=== PATIENT | female | born 1950 | race Two or more races ===

== ENCOUNTER 2019-01-04 14:34 | Emergency (ER) | payer OTHER ==
[~2019-01-04] VITALS: Ht 144.8 cm; Wt 38.6 kg
[2019-01-04 14:44] VITALS: Ht 144.8 cm; Wt 38.6 kg
[2019-01-04 18:05] VITALS: BP 175/99
== END 2019-01-04 18:05 | disposition home or self-care (01) ==
LOC: CANPREER → ED 14:34
DX: S93.401A Sprain of unspecified ligament of right ankle, initial encounter (principal); I12.0 Hypertensive chronic kidney disease with stage 5 chronic kidney disease or end stage renal disease; N18.6 End stage renal disease; Z99.2 Dependence on renal dialysis; I63.9 Cerebral infarction, unspecified; E78.00 Pure hypercholesterolemia, unspecified; I73.9 Peripheral vascular disease, unspecified; L97.929 Non-pressure chronic ulcer of unspecified part of left lower leg with unspecified severity; Z88.6 Allergy status to analgesic agent; Z88.5 Allergy status to narcotic agent; L97.919 Non-pressure chronic ulcer of unspecified part of right lower leg with unspecified severity; X58.XXXA Exposure to other specified factors, initial encounter; Y93.89 Activity, other specified; Y92.89 Other specified places as the place of occurrence of the external cause; Y99.8 Other external cause status
CPT/HCPCS: Q0092

== ENCOUNTER 2019-02-07 03:40 | Emergency (ER) | payer OTHER ==
[~2019-02-07] VITALS: Ht 144.8 cm; Wt 37.2 kg
[2019-02-07 03:48] VITALS: Ht 144.8 cm; Wt 37.2 kg
[2019-02-07 06:58] VITALS: BP 157/76
== END 2019-02-07 06:58 | disposition home or self-care (01) ==
LOC: ED 03:40
DX: S76.911A Strain of unspecified muscles, fascia and tendons at thigh level, right thigh, initial encounter (principal); J44.9 Chronic obstructive pulmonary disease, unspecified; I12.9 Hypertensive chronic kidney disease with stage 1 through stage 4 chronic kidney disease, or unspecified chronic kidney disease; N18.9 Chronic kidney disease, unspecified; E78.00 Pure hypercholesterolemia, unspecified; Z94.0 Kidney transplant status; Z88.6 Allergy status to analgesic agent; Z88.8 Allergy status to other drugs, medicaments and biological substances; X58.XXXA Exposure to other specified factors, initial encounter; Y93.89 Activity, other specified; Y92.89 Other specified places as the place of occurrence of the external cause; Y99.8 Other external cause status
CPT/HCPCS: J3010

== ENCOUNTER 2019-02-26 23:28 | Inpatient (IN) | payer OTHER ==
[~2019-02-26] VITALS: Ht 152.4 cm; Wt 37.6 kg
[2019-02-27] VITALS (7 sets, daily range): BP systolic 118–180; BP diastolic 43–64
[2019-02-27 00:28] LABS: BASOPHIL % 0.3 % (0-2); PLATELET COUNT 375 x10^3mcL (130-400)
[2019-02-27 00:29] LABS: RED CELL DISTRIBUTION WIDTH 18.8 % (11.5-14.5)
[2019-02-27 00:32] LABS: BILIRUBIN TOTAL 0.4 mg/dL (0.20-1.00); CALCIUM 9.9 mg/dL (8.5-10.1); CARBON DIOXIDE 28.9 mmol/L (21-32); POTASSIUM SERUM 4.1 mmol/L (3.5-5.1)
[2019-02-27 00:36] LABS: ALBUMIN 2.5 g/dL (3.4-5.0)
[2019-02-27 00:38] LABS: CREATININE SERUM 5.5 mg/dL (0.6-1.0)
[2019-02-27] MEDS ORDERED: CARVEDILOL25 M1 PO (01:25)
[2019-02-27] MEDS ORDERED: CLONIDINE HYDR0.3 M1 PO (01:26)
[2019-02-27] MEDS ORDERED: TRAMADOL HCL50 MG PO (01:26)
[2019-02-27] MEDS ORDERED: HYDRALAZINE HCL50 MG PO (01:27)
[2019-02-27] MEDS ORDERED: PROAIR HFA8.5 GM IH (01:27)
[2019-02-27] MEDS ORDERED: NORCO1 TA2 PO (01:28)
[2019-02-27 01:46] LABS: MAGNESIUM 2.5 mg/dL (1.8-2.4); PHOSPHOROUS 7.3 mg/dL (2.5-4.9)
[2019-02-27 06:45] LABS: PLATELET COUNT 352 x10^3mcL (130-400)
[2019-02-27 06:48] LABS: CALCIUM 10.3 mg/dL (8.5-10.1); CARBON DIOXIDE 27.5 mmol/L (21-32); POTASSIUM SERUM 3.9 mmol/L (3.5-5.1)
[2019-02-27 06:52] LABS: CREATININE SERUM 5.6 mg/dL (0.6-1.0)
[2019-02-27 06:53] LABS: RED CELL DISTRIBUTION WIDTH 18.9 % (11.5-14.5)
[2019-02-27 10:27] LABS: BAND NEUTROPHIL 0 % (0-10); BASOPHIL 0 % (0-2); MONOCYTE 13 % (0-7); SEGMENTED NEUTROPHILS 83 % (37-75)
[2019-02-27 10:29] LABS: PLATELET MORPHOLOGY PLATELETS INCREASED; rbc morphology (normal/abnorm) ABNORMAL (NORMAL)
[2019-02-28 04:56] VITALS: BP 163/52
[2019-02-28 06:31] LABS: CALCIUM 9.9 mg/dL (8.5-10.1); CARBON DIOXIDE 25.7 mmol/L (21-32); CREATININE SERUM 3.1 mg/dL (0.6-1.0)
[2019-02-28 06:34] LABS: BASOPHIL % 0.2 % (0-2); PLATELET COUNT 334 x10^3mcL (130-400)
[2019-02-28 06:45] LABS: RED CELL DISTRIBUTION WIDTH 18.5 % (11.5-14.5)
[2019-02-28 10:02] VITALS: BP 178/61
[2019-02-28 12:55] VITALS: BP 191/46
[2019-02-28 16:47] VITALS: BP 121/73
[2019-02-28 21:08] VITALS: BP 181/65
[2019-03-01 05:19] VITALS: BP 127/67
[2019-03-01 06:15] LABS: CALCIUM 10.6 mg/dL (8.5-10.1); CARBON DIOXIDE 23.2 mmol/L (21-32); MAGNESIUM 2.1 mg/dL (1.8-2.4); PHOSPHOROUS 6.5 mg/dL (2.5-4.9); POTASSIUM SERUM 5.4 mmol/L (3.5-5.1)
[2019-03-01 06:31] LABS: CREATININE SERUM 4.7 mg/dL (0.6-1.0)
[2019-03-01 06:36] LABS: BASOPHIL % 0.4 % (0-2); PLATELET COUNT 324 x10^3mcL (130-400)
[2019-03-01 06:52] LABS: RED CELL DISTRIBUTION WIDTH 19.1 % (11.5-14.5)
[2019-03-01 08:26] VITALS: BP 212/70
[2019-03-01 17:00] VITALS: BP 178/70
[2019-03-01 21:01] VITALS: BP 172/67
[2019-03-01 22:48] VITALS: BP 179/69
[2019-03-02 04:20] VITALS: BP 186/72
[2019-03-02 06:15] VITALS: BP 186/70
[2019-03-02 06:19] LABS: CALCIUM 10.8 mg/dL (8.5-10.1); CARBON DIOXIDE 24.4 mmol/L (21-32); CREATININE SERUM 3.6 mg/dL (0.6-1.0); POTASSIUM SERUM 4.3 mmol/L (3.5-5.1)
[2019-03-02 06:27] LABS: BASOPHIL % 0.2 % (0-2); PLATELET COUNT 294 x10^3mcL (130-400)
[2019-03-02 09:12] VITALS: BP 119/47
[2019-03-02 17:55] VITALS: BP 146/72
[2019-03-02 19:54] VITALS: BP 117/58
[2019-03-03 06:00] VITALS: BP 192/57
[2019-03-03 06:40] VITALS: BP 186/53
[2019-03-03 08:05] LABS: BASOPHIL % 0.5 % (0-2); PLATELET COUNT 296 x10^3mcL (130-400)
[2019-03-03 08:11] LABS: RED CELL DISTRIBUTION WIDTH 18.6 % (11.5-14.5)
[2019-03-03 08:48] LABS: CALCIUM 10.8 mg/dL (8.5-10.1); CARBON DIOXIDE 22.9 mmol/L (21-32); POTASSIUM SERUM 5.5 mmol/L (3.5-5.1)
[2019-03-03 08:54] VITALS: BP 176/59
[2019-03-03 16:28] VITALS: BP 114/47
[2019-03-04] VITALS (8 sets, daily range): BP systolic 109–178; BP diastolic 46–64
[2019-03-04 06:38] LABS: BASOPHIL % 0.3 % (0-2); PLATELET COUNT 282 x10^3mcL (130-400)
[2019-03-04 06:54] LABS: CALCIUM 10.6 mg/dL (8.5-10.1); CARBON DIOXIDE 20.4 mmol/L (21-32); CREATININE SERUM 3.5 mg/dL (0.6-1.0); POTASSIUM SERUM 4.2 mmol/L (3.5-5.1)
[2019-03-04 07:37] LABS: RED CELL DISTRIBUTION WIDTH 18.7 % (11.5-14.5)
[2019-03-04] MEDS ORDERED: FLA500 PO (10:24)
[2019-03-04] MEDS ORDERED: BACTRIM DS1 TAB PO (10:24)
[2019-03-04] MEDS ORDERED: CLINDAMYCIN HY150 M1 PO (17:49)
[2019-03-04] MEDS ORDERED: CIPRO500 MG PO (17:49)
[2019-03-05 06:03] VITALS: BP 128/56
[2019-03-05 07:21] LABS: CALCIUM 10.7 mg/dL (8.5-10.1); CARBON DIOXIDE 16.7 mmol/L (21-32); MAGNESIUM 2.5 mg/dL (1.8-2.4); PHOSPHOROUS 7.1 mg/dL (2.5-4.9); POTASSIUM SERUM 4.9 mmol/L (3.5-5.1)
[2019-03-05 07:34] LABS: CREATININE SERUM 4.9 mg/dL (0.6-1.0)
[2019-03-05 07:42] LABS: BASOPHIL % 0.1 % (0-2); PLATELET COUNT 329 x10^3mcL (130-400)
[2019-03-05 07:56] LABS: RED CELL DISTRIBUTION WIDTH 18.6 % (11.5-14.5)
[2019-03-05 09:10] VITALS: BP 145/58
[2019-03-05 16:23] VITALS: BP 128/55
[2019-03-05 20:50] VITALS: BP 131/48
[2019-03-06] VITALS (7 sets, daily range): BP systolic 118–200; BP diastolic 52–75; Ht 152.4 cm; Wt 37.6 kg
[2019-03-06 06:47] LABS: BASOPHIL % 0.2 % (0-2); PLATELET COUNT 336 x10^3mcL (130-400)
[2019-03-06 06:58] LABS: CALCIUM 10.7 mg/dL (8.5-10.1); CARBON DIOXIDE 17.7 mmol/L (21-32); POTASSIUM SERUM 5.5 mmol/L (3.5-5.1)
[2019-03-06 07:02] LABS: RED CELL DISTRIBUTION WIDTH 18.9 % (11.5-14.5)
[2019-03-06 07:11] LABS: CREATININE SERUM 6.1 mg/dL (0.6-1.0)
[2019-03-07] VITALS (7 sets, daily range): BP systolic 102–184; BP diastolic 48–65
[2019-03-08 05:49] VITALS: BP 159/57
[2019-03-08 06:44] LABS: PLATELET COUNT 291 x10^3mcL (130-400)
[2019-03-08 06:50] LABS: CALCIUM 9.9 mg/dL (8.5-10.1); CARBON DIOXIDE 24.4 mmol/L (21-32); POTASSIUM SERUM 5.1 mmol/L (3.5-5.1)
[2019-03-08 06:53] LABS: RED CELL DISTRIBUTION WIDTH 18.9 % (11.5-14.5)
[2019-03-08 07:06] LABS: CREATININE SERUM 5.1 mg/dL (0.6-1.0)
[2019-03-08 09:09] LABS: calcium (part of PTHIC) 10.1 mg/dL (8.7-10.3)
[2019-03-08 09:11] VITALS: BP 165/65
[2019-03-08 10:45] LABS: BAND NEUTROPHIL 1 % (0-10); BASOPHIL 0 % (0-2); MONOCYTE 1 % (0-7); SEGMENTED NEUTROPHILS 92 % (37-75)
[2019-03-08 10:46] LABS: rbc morphology (normal/abnorm) ABNORMAL (NORMAL)
[2019-03-08 10:47] LABS: PLATELET MORPHOLOGY PLATELETS NORMAL
[2019-03-08 18:37] VITALS: BP 194/78
[2019-03-08 20:38] VITALS: BP 187/70
[2019-03-08 23:07] VITALS: BP 127/52
[2019-03-09 06:20] LABS: PLATELET COUNT 320 x10^3mcL (130-400)
[2019-03-09 06:27] VITALS: BP 157/56
[2019-03-09 06:39] LABS: CALCIUM 9.6 mg/dL (8.5-10.1); CARBON DIOXIDE 28.6 mmol/L (21-32); CREATININE SERUM 2.9 mg/dL (0.6-1.0); MAGNESIUM 1.9 mg/dL (1.8-2.4)
[2019-03-09 06:42] LABS: BASOPHIL % 0 % (0-2); RED CELL DISTRIBUTION WIDTH 18.8 % (11.5-14.5)
[2019-03-09 09:21] VITALS: BP 150/60
[2019-03-09 17:49] VITALS: BP 152/59
[2019-03-09 20:22] VITALS: BP 151/69
[2019-03-10] VITALS (8 sets, daily range): BP systolic 136–201; BP diastolic 53–76
[2019-03-10 06:39] LABS: CALCIUM 10.3 mg/dL (8.5-10.1); CARBON DIOXIDE 23.7 mmol/L (21-32); POTASSIUM SERUM 4.3 mmol/L (3.5-5.1)
[2019-03-10 06:51] LABS: CREATININE SERUM 4.3 mg/dL (0.6-1.0)
[2019-03-10 07:33] LABS: BASOPHIL % 0.1 % (0-2); PLATELET COUNT 330 x10^3mcL (130-400)
[2019-03-10 08:03] LABS: RED CELL DISTRIBUTION WIDTH 19.5 % (11.5-14.5)
[2019-03-10 14:18] LABS: rbc morphology (normal/abnorm) ABNORMAL (NORMAL)
[2019-03-10 23:32] LABS: BASOPHIL % 0.1 % (0-2); PLATELET COUNT 354 x10^3mcL (130-400); RED CELL DISTRIBUTION WIDTH 18.1 % (11.5-14.5)
[2019-03-11 00:20] VITALS: BP 190/70
[2019-03-11 06:00] VITALS: BP 180/68
[2019-03-11 07:12] VITALS: BP 185/55
[2019-03-11 08:37] LABS: BASOPHIL % 0.1 % (0-2); PLATELET COUNT 354 x10^3mcL (130-400)
[2019-03-11 09:26] LABS: CALCIUM 11.2 mg/dL (8.5-10.1); CARBON DIOXIDE 19.5 mmol/L (21-32); MAGNESIUM 2.1 mg/dL (1.8-2.4); POTASSIUM SERUM 4.3 mmol/L (3.5-5.1)
[2019-03-11 17:35] VITALS: BP 174/74
[2019-03-11 20:34] VITALS: BP 139/66
[2019-03-12 05:38] VITALS: BP 224/87
[2019-03-12 06:51] VITALS: BP 151/58
[2019-03-12 08:12] LABS: BASOPHIL % 0.1 % (0-2); PLATELET COUNT 358 x10^3mcL (130-400)
[2019-03-12 08:17] LABS: RED CELL DISTRIBUTION WIDTH 19.5 % (11.5-14.5)
[2019-03-12 08:41] LABS: CALCIUM 9.8 mg/dL (8.5-10.1); CARBON DIOXIDE 28.1 mmol/L (21-32); CREATININE SERUM 1.7 mg/dL (0.6-1.0)
[2019-03-12 09:18] VITALS: BP 147/42
[2019-03-12 17:03] VITALS: BP 168/54
[2019-03-12 21:27] VITALS: BP 159/50
[2019-03-13 05:45] VITALS: BP 159/46
[2019-03-13 07:44] LABS: CALCIUM 10.3 mg/dL (8.5-10.1); CARBON DIOXIDE 23.3 mmol/L (21-32); POTASSIUM SERUM 4.9 mmol/L (3.5-5.1)
[2019-03-13 08:56] LABS: PLATELET COUNT 300 x10^3mcL (130-400)
[2019-03-13 08:59] LABS: RED CELL DISTRIBUTION WIDTH 19.4 % (11.5-14.5)
[2019-03-13 09:24] VITALS: BP 143/60
[2019-03-13 13:00] VITALS: BP 109/65
[2019-03-13 13:35] LABS: BAND NEUTROPHIL 0 % (0-10); BASOPHIL 0 % (0-2); MONOCYTE 2 % (0-7); SEGMENTED NEUTROPHILS 93 % (37-75)
[2019-03-13 13:37] LABS: PLATELET MORPHOLOGY PLATELETS NORMAL; rbc morphology (normal/abnorm) ABNORMAL (NORMAL)
[2019-03-13 13:38] LABS: ovalocyte/elliptocyte 2+
[2019-03-13 14:53] VITALS: BP 173/81
[2019-03-13 16:29] VITALS: BP 125/58
[2019-03-13 19:30] VITALS: BP 126/63
[2019-03-14 06:10] VITALS: BP 140/80
[2019-03-14 09:28] VITALS: BP 165/68
[2019-03-14 10:50] LABS: BASOPHIL % 0.7 % (0-2); PLATELET COUNT 319 x10^3mcL (130-400)
[2019-03-14 10:52] LABS: RED CELL DISTRIBUTION WIDTH 19.1 % (11.5-14.5)
[2019-03-14 12:02] LABS: CALCIUM 10.1 mg/dL (8.5-10.1); CARBON DIOXIDE 27.8 mmol/L (21-32); CREATININE SERUM 2.7 mg/dL (0.6-1.0); PHOSPHOROUS 4.4 mg/dL (2.5-4.9); POTASSIUM SERUM 4.3 mmol/L (3.5-5.1)
[2019-03-14 13:51] VITALS: BP 165/68
== END 2019-03-14 14:10 | DRG 592 ==
LOC: ED 23:28 → MU 02-27 01:25 → DU 02-27 01:25 → MU 02-28 11:52 → DU 03-06 10:20 → MU 03-06 11:05
PROVIDERS: Emergency Medicine; Family Medicine; Internal Medicine; Internal Medicine Nephrology; ADMIT Internal Medicine
PROC: 30233N1 Transfusion of Nonautologous Red Blood Cells into Peripheral Vein, Percutaneous Approach (ICD-10-PCS; principal; 2019-03-10)
DX: L89.890 Pressure ulcer of other site, unstageable (principal); N18.6 End stage renal disease; N17.0 Acute kidney failure with tubular necrosis; E43 Unspecified severe protein-calorie malnutrition; I12.0 Hypertensive chronic kidney disease with stage 5 chronic kidney disease or end stage renal disease; R64 Cachexia; Z68.1 Body mass index [BMI] 19.9 or less, adult; B96.1 Klebsiella pneumoniae [K. pneumoniae] as the cause of diseases classified elsewhere; B95.62 Methicillin resistant Staphylococcus aureus infection as the cause of diseases classified elsewhere; S92.354A Nondisplaced fracture of fifth metatarsal bone, right foot, initial encounter for closed fracture; L89.151 Pressure ulcer of sacral region, stage 1; L89.311 Pressure ulcer of right buttock, stage 1; I73.9 Peripheral vascular disease, unspecified; E86.0 Dehydration; E83.39 Other disorders of phosphorus metabolism; E83.41 Hypermagnesemia; E83.59 Other disorders of calcium metabolism; J44.9 Chronic obstructive pulmonary disease, unspecified; D63.1 Anemia in chronic kidney disease; Z66 Do not resuscitate; Z99.2 Dependence on renal dialysis; Z86.73 Personal history of transient ischemic attack (TIA), and cerebral infarction without residual deficits; Z99.3 Dependence on wheelchair; Z16.24 Resistance to multiple antibiotics; W19.XXXA Unspecified fall, initial encounter; Y92.9 Unspecified place or not applicable
CPT/HCPCS: 83880; 97110-GP; 97112-GP; 97530-GP; J0360; J0885-EC; J1644; J2185; J2405; J2543; J3370; J3480; J7030; J7050; P9016; P9047; Q0092; Q0163

== ENCOUNTER 2019-03-14 14:20 | Inpatient (IN) | payer OTHER ==
[~2019-03-14] VITALS: Ht 152.4 cm; Wt 36.8 kg
[~2019-03-14 14:20] MED LIST: BACTRIM DS1 TAB PO; CARVEDILOL25 M1 PO; CIPRO500 MG PO; CLINDAMYCIN HY150 M1 PO; CLONIDINE HYDR0.3 M1 PO; FLA500 PO; HYDRALAZINE HCL50 MG PO; NORCO1 TA2 PO; PROAIR HFA8.5 GM IH; TRAMADOL HCL50 MG PO
[2019-03-14 14:23] VITALS: Ht 152.4 cm; Wt 36.8 kg
[2019-03-14 15:17] LABS: BASOPHIL % 0.1 % (0-2); PLATELET COUNT 348 x10^3mcL (130-400)
[2019-03-14 15:18] LABS: RED CELL DISTRIBUTION WIDTH 19.9 % (11.5-14.5)
[2019-03-14 15:27] LABS: CALCIUM 10.3 mg/dL (8.5-10.1); CARBON DIOXIDE 28.3 mmol/L (21-32); CREATININE SERUM 2.9 mg/dL (0.6-1.0); POTASSIUM SERUM 4.1 mmol/L (3.5-5.1)
--- NOTE | 2019-03-14 15:30 | NUR ---
PT WAS BEING DISCHARGED FROM TELE FLOOR WITH TRANSPORT TEAM PASSING THROUGH ED WHEN PT BEGAN TO C/O OF CP. PT AAOX4 NO DISTRESS. PLACED ON CM NSR VSS PT TOLD LAB PERSONNEL SHE HAD PAIN IN HER L BREAST AREA. PT DENIES CP AT THIS TIME IS SLEEPING BLANKETS PROVIDED. WILL MONITOR
[2019-03-14 15:32] LABS: BILIRUBIN TOTAL 0.5 mg/dL (0.20-1.00); TOTAL PROTEIN, SERUM 7.2 g/dL (6.4-8.2)
--- NOTE | 2019-03-14 15:42 | NUR ---
PT MEDICATED PER MD ORDERS SEE EMAR. PT WITH URGE TO VOID AND OR HAVE BOWEL MOVEMENT. BED TEJEDA PLACED UNDER PT
--- NOTE | 2019-03-14 18:17 | NUR ---
REPORT GIVEN TO FIORDALIZA FRAGOSO
[2019-03-14 18:44] LABS: MAGNESIUM 1.8 mg/dL (1.8-2.4); PHOSPHOROUS 4.6 mg/dL (2.5-4.9)
--- NOTE | 2019-03-14 19:02 | NUR ---
PT TRANSPORTED TO TELE FLOOR VIA GURNEY ON PORTABLE CM NO DISTRESS VSS IV SITE PATENT. FIORDALIZA FRAGOSO RESUMING CARE OF PT IN TELE FLOOR
[2019-03-14 20:05] VITALS: BP 170/87
--- NOTE | 2019-03-14 21:00 | NUR ---
[facility] KEPT COMFORTABLE IN BED. PLACED ON AIR MATTRESS, WITH MULT. DRY SCABS TO LLE, ULCERS TO COCCYX AND NECROSIS TO RLE. PICTURES TAKEN AND DOCUMENTED. ALERT AND ORIENTED, WITH PERIODS OF FORGETFULNESS. ABLE TO VERBALIZE NEEDS. RESP. EVEN AND UNLABORED. ON ROOM AIR, SAT. 98%. PLACED ON TELE #22, SR ON THE MONITOR. DENIES CHEST PAIN OR PRESSURE.HL TO LW , INTACT AND PATENT. AFEBRILE AND VITAL SIGNS STABLE. HEMODIALYSIS PT, LINDSAY CATH TO LT UPPER CHEST. LAST HEMODIALYSIS 03/13/19. ORIENTED TO ROOM AND SURROUNDING. BED IN LOW POSITION.CALL LIGHT WITHIN REACH. WILL CONTINUE TO MONITOR.
[2019-03-14 23:12] VITALS: BP 170/87
--- NOTE | 2019-03-15 01:21 | NUR ---
COMPLAINED OF GEN. BODY PAIN, 06/07,REQUESTING NORCO. MEDICATED ORDERED. WILL CONTINUE TO MONITOR.
[2019-03-15 06:07] VITALS: BP 142/80
[2019-03-15 06:15] LABS: BASOPHIL % 0.5 % (0-2); PLATELET COUNT 352 x10^3mcL (130-400)
--- NOTE | 2019-03-15 06:18 | NUR ---
COMPLAINED OF GEN. BODY PAIN, MEDICATED ORDERED WITH RELIEF. RESP. EVEN AND UNLABORED. ON ROOM AIR . NO ACUTE DISTRESS NOTED. AFEBRILE AND VITAL SIGNS STABLE.REFUSED ACCUCHECK THIS AM, PT STATES SHE IS NOT DIABETIC. DR Crump AWARE. CONTACT ISOLATION PREU. MAINTAINED. KEPT COMFORTABLE AND ALL NEEDS ATTENDED TO. WILL CONTINUE TO MONITOR.
[2019-03-15 06:32] LABS: CALCIUM 10.3 mg/dL (8.5-10.1); CREATININE SERUM 3.7 mg/dL (0.6-1.0); PHOSPHOROUS 5.3 mg/dL (2.5-4.9); POTASSIUM SERUM 5.1 mmol/L (3.5-5.1)
[2019-03-15 06:58] LABS: RED CELL DISTRIBUTION WIDTH 19.9 % (11.5-14.5)
--- NOTE | 2019-03-15 07:40 | NUR ---
RECEIVED PT REPORT FROM LEAVING NURSE. PT IS ON CONTACT ISOLATION. PT SEEN REST ON BED, COMPLAIN OF LEG PAIN. LAST PAIN MED WAS GIVE AT AROUND 0500AM, NOT DUE AT THIS TIME. PT BREATHING ON RA, EVEN, UNLABORED. PT DENIE CHEST PAIN AT THIS TIME. SALINE LOCK AT THIS TIME.
[2019-03-15 09:45] VITALS: BP 147/44
--- NOTE | 2019-03-15 10:04 | NUR ---
PT'S COCCYX AREA ULCER 4CM X 4 CM, PINK AT EDGE. NO DRAINAGE. OPTIFORM APPLIED.
[2019-03-15 13:42] VITALS: BP 175/50
--- NOTE | 2019-03-15 14:29 | NUR ---
CLEANED PT'S SARABJIT OPEN WOUND WITH WOUND CARE SOLUTION. THERAHONEY / THEROHONEY SHEET APPLIED TO WOUND AREA, KERLIX ROLL APPLIED. PT COMPLAIN PAINFUL AND UNABLE TO STRETCH HER R LEG OUT, CONTRACTED. PAIN MED NORCO APPLIED TO MANAGE PT'S PAIN LEVEL. PT'S SON AT BED SIDE.
--- NOTE | 2019-03-15 14:59 | NUR ---
PHYSICAL THERAPY NOTE PATIENT UNABLE TO BE SEEN TODAY SECONDARY TO PATIENT HAVING DIALYSIS. WILL RECOMMEND ATTEMPT EVAL AND TREAT ON NEXT VISIT.
[2019-03-15 16:30] VITALS: BP 175/50
--- NOTE | 2019-03-15 16:42 | NUR ---
PT IS GOING TO TRANSFER TO [facility]SING [facility] AFTER HD. PT'S REPORT GIVEN TO NURSING FACILITY NURSE FLORES. QUESTIONS AND CONCERN ANSWERED. HD NURSE AT BEDSIDE.
--- NOTE | 2019-03-15 17:17 | NUR ---
MADE DR. ROSE AWARE PT'S 3RD TROP 0.176
[2019-03-15 17:56] VITALS: BP 101/61
--- NOTE | 2019-03-15 19:30 | NUR ---
RECEIVED AWAKE AND VERBALLY RESPONSIVE, HEMODIALYSIS IN PROGRESS. SKIN WARM AND DRY TO TOUCH , DRESSING TO RIGHT LOWER EXTRMITY INTACT AND CLEAN. FOR DISCAHRGE TO [facility] AFTER HD TODAY, PT VERBALIZING TO BE TRANSFERRED TONITE, CALIMED SHE DOES NOT FEEL GOOD. VS TAKEN , STABLE, DR HUDSON WAS NOTIFIED, FOUZIA PAZ AT [facility] NOTIFIED FOR CANCELLING TRANSFER TO THE FACILITY. [facility] AWARE.
--- NOTE | 2019-03-15 19:36 | NUR ---
HD DONE AT BED SIDE, 1.6L OUT. REPORT GIVEN TO RECEIVING NURSE. PT REFUSED TO BE TRANSFERED TONIGHT. RECEIVING NURSE CLINTON AT BEDSIDE. ENDORSED PT CARE TO RN CLINTON.
--- NOTE | 2019-03-15 22:13 | NUR ---
PT C/O PAIN AT THE LEFT RIB/LUQ,06/07. NORCO 5/325MG PO PRN MEDICATION. REPOSITIONED FOR COMFORT.
--- NOTE | 2019-03-15 23:00 | NUR ---
CONTINUES HANY TB IVPB ORDERED. NO ADVERSE REACTION NOTED. PT REFUSED FINGERSTICK BLOOD SUGAR, EXPLAINED THE RISKS/BENEFITS BUT NO AVAIL. NO S/S OF GLYCEMIC REACTION.
--- NOTE | 2019-03-16 00:01 | NUR ---
EYES CLOSED, NO FACIAL GRIMACING NOTED. RESPIRATION EVEN AND UNLABORED.NO S/S OF PAIN/DISCOMFORT. CALL LIGHT WITHINR EACH. BED IN LOWEST POSITION FOR SAFETY.
--- NOTE | 2019-03-16 03:11 | NUR ---
C/O NAUSEA/VOMITNG, ZOFRAN 4MG IVP PRN MEDICATION. ICE CHIPS TOLERATING WELL. CALL LIGHT WITHIN REACH.
--- NOTE | 2019-03-16 05:46 | NUR ---
NO FURTJER VOMITING NOTED. TOTAL ASSIST IN REPOSITIONING FOR COMFORT. KEPT CLEAN AND DRY. ALL NEEDS ATTENDED.
[2019-03-16 06:04] VITALS: BP 140/80
[2019-03-16 06:26] VITALS: BP 149/73
[2019-03-16 06:43] LABS: BASOPHIL % 0.1 % (0-2); PLATELET COUNT 355 x10^3mcL (130-400)
[2019-03-16 07:03] LABS: RED CELL DISTRIBUTION WIDTH 18.9 % (11.5-14.5)
--- NOTE | 2019-03-16 07:10 | NUR ---
RECEIVED REPORT FROM STEREOTYPE FINISHER NURSE AT THIS TIME. PATIENT RESTING COMFORTABLY IN BED. NO APPARENT DISTRESS OR DISCOMFORT NOTED. BREATHING EVEN AND UNLABORED. NO RESPIRATORY DISTRESS NOTED. PATIENT DENIES CHEST PAIN AT THIS TIME. IV PATENT AND INTACT. ALL QUESTIONS AND CONCERNS ADDRESSED. ALL NEEDS ATTENDED TO. WILL CONTINUE TO MONITOR
[2019-03-16 07:20] LABS: CARBON DIOXIDE 25.1 mmol/L (21-32); CREATININE SERUM 2.5 mg/dL (0.6-1.0); PHOSPHOROUS 3.5 mg/dL (2.5-4.9); POTASSIUM SERUM 3.8 mmol/L (3.5-5.1)
--- NOTE | 2019-03-16 08:40 | NUR ---
SHELIA WOUND CARE NURSE AT BEDSIDE CHANGING PATIENT LEG DRESSING AT THIS TIME. PATIENT TOLERATING FAIRLY. ALL NEEDS ATTENDED TO. WILL PROCEED ORDERED
--- NOTE | 2019-03-16 09:23 | NUR ---
MORNING MEDICATIONS ADMINISTERED. PATIENT TOLERATED MEDICATIONS WELL. NO ADVERSE EFFECTS NOTED. NO APPARENT DISTRESS OR DISCOMFORT NOTED. ALL NEEDS ATTENDED TO. ALL SAFETY PRECAUTIONS MAINTAINED
[2019-03-16 09:53] VITALS: BP 164/75
--- NOTE | 2019-03-16 10:21 | NUR ---
SPOKE TO SONI AMRTIN REGARDING PATIENT TRANSFER TO [facility]. AWAITING MORE INFORMATION ABOUT TRANSFER AT THIS TIME. WILL CONTINUE TO MONITOR
--- NOTE | 2019-03-16 11:11 | NUR ---
WOUND CARE EVALUATION NOTE: SKIN ASSESSMENT DONE WITH PRIMARY RN PLASTIC TILE SETTER WITH THIS PT. READMITTED WITH UNSTAGEABLE PRESSURE ULCERS TO SACRALCOCCYX AND RIGHT BUTTOCK. BLE PAD WITH NECROTIC ULCERATIONS. PT. IS AAX4 C/O PAIN TO RLE, UNABLE TO EXTENDED RLE. COMORBIDITIES RELATED TO DELAY WOUND HEALING AND FURTHER SKIN BREAKS EXPLAINED WITH PLAN OF CARE DISCUSSED WITH PT. AND PRIMARY RN. PT. VERBALIZES UNDERSTANDING AT THIS TIME. INTEGUMENTARY: -LLE VASCULAR ULCER PARTIAL THICKNESS LOSS OF SKIN, 5X2X0.1 CM, SCATTERED, WOUND BED IS PALE PINK, MOIST, FLAT TO WOUND EDGE, SHEFALI-WOUND SKIN IS PINK AND INTACT, NO ODOR, SCATTERED MULTIPLE BROWN/ BLACK SCABS, PAIN 2/10 -RLE TO SHEFALI ANKLE ANDDORSAL FOOT VASCULAR ULCER BLACK 90% BLACK ESCHAR TO WOUND BED 22X8CM, SCATTERED ESCHARD TISSUE TO SHEFALI-WOUND SKIN EXTENDED TO DORSAL /LATERAL FOOT WITH RIGHT HEEL 100% NECROTIC, PAIN 8/10 -PRESSURE ULCER UNSTAGEABLE RIGHT BUTTOCK 1X1 CM WITH 100% SOFT YELLOW SLOUGH TO CENTER OF WOUND, SHEFALI-WOUND SKIN REDNESS INDICATED FURTHER DAMAGE -SACRALCOCCYX PRESURRE ULCER UN-STAGEABLE 2.6X5.4CM (PREVIOUS 2 WOUNDS MERGEDED TO ONE) WITH 100% SOFT YELLOW SLOUGH TO WOUND BED, SHEFALI-WOUND SKIN REDNESS INDICATED FURTHER DAMAGE, NO DRAINAGE, NO ODOR. -RIGHT UPPER PPOSTERIOR THIGHTS MULTIPLE DARK BROWN DISCOLORATION, POSSIBLE S/S ISCHEMC FROM PAD, PAIN 5/10 -RIGHT KNEE BROWN SCAB 2X2 CM, SHEFALI-WOUND INTACT. RIGHT LATER KNEE 1X3CM SCAB RECOMMENDATIONS: -PAINT RIGHT KNEE SCABS WITH BETADINE BID AND LEAVE IT OPEN TO AIR -PAIN SACRALCOCCYX ULCER AND RIGHT BUTTOCK MULTIPLE ULCERS WITH BETADINE APPLY FOAM DRESSING QD AND PRN IF SOILING -CLEANSE LEFT LOWER EXTREMITIES WOUNDS WITH WOUND CARE SOLUTION, PAT DRY, APPLY THERAHONEY WITH ADAPTIC DRESSING AND WRAP WITH KERLIX ROLL CHANGE QD AND PRN IF SOILING. -CLEANSE RIGHT LOWER EXTREMITIES WOUNDS WITH WOUND CARE SOLUTION, PAT DRY, APPLY SOAKED BETADINE 4X4 DRESSING AND WRAP WITH KERLIX ROLL CHANGE QM-W-F AND PRN IF SOILING. -OFFLOAD BILATERAL HEELS BY PLACING PILLOWS UNDER CALVES UNLESS OTHERWISE CONTRAINDICATED -HEEL PROTECTORS TO BILATERAL HEELS AT ALL TIMES -PRESSURE REDISTUBUTION SURFACE THERAPY -TURN AND REPOSITION Q2H, OFFLOAD SACRALCOCCYX BY TURNING RIGHT AND LEFT -CONTINUE TO FOLLOW RD RECOMMENDATIONS PLEASE CONTACT WOUND CARE NURSE IF ANY CHANGE OF CONDITION NOTICE
--- NOTE | 2019-03-16 11:12 | NUR ---
SPOKE WITH GABRIELLE FROM ADMITTING AT [facility] AT THIS TIME. PER GABRIELLE, OUR AIRFREIGHT OPERATIONS AGENT TO CALL HIM REGARDING A BED FOR THE PATIENT. CALLED SONI FROM [facility] AND REACHED HER VOICEMAIL. LEFT A VOICEMAIL FOR SONI TO CALL GABRIELLE AT THIS TIME. AWAITING INFORMATION.
--- NOTE | 2019-03-16 11:30 | NUR ---
PATIENT BLOOD SUGAR AT THIS TIME 90. NO INSULIN COVERAGE REQUIRED. ALL NEEDS ATTENDED TO. WILL CONTINUE TO MONITOR
--- NOTE | 2019-03-16 11:30 | NUR ---
OFFERED PATIENT OFFLOADING HEEL FOAM AT THIS TIME. PATIENT STATES THEY ARE UNCOMFORTABLY AND DOES NOT WANT TO WEAR THEM. EXPLAINED BENEFITS OF OFFLOADING FOAM. PATIENT STILL REFUSES. HEEL FOAM LEFT AT BEDSIDE FOR PATIENT TO WEAR WHEN READY. TAUGHT PATIENT HOW TO USE. PATIENT VERBALIZES UNDERSTANDING. WILL CONTINUE TO MONITOR
[2019-03-16 11:34] VITALS: BP 149/68; BP 164/75
--- NOTE | 2019-03-16 12:00 | NUR ---
PATIENT STABLE TO BE TRANSFERRED TO [facility]. DISCHARGE INSTRUCTIONS GIVEN WELL EDUCATION. INSTRUCTED PATIENT ABOUT FOLLOW UP APPOINTMENT. PATIENT VERBALIZES UNDERSTANDING. PATIENT FAMILY AT BEDSIDE AND VERBALIZE UNDERSTANDING WELL. ALL BELONGINGS WITH PATIENT. AWAITING TRANSPORTATION AT THIS TIME.
--- NOTE | 2019-03-16 13:12 | NUR ---
Follow-up Nutrition Assessment- 242T/B JOANNE WEST FU HR Dx: Right leg decubitus ulcer Labs: (03/16) BG 107H, CREAT 2.5H(trending down) Meds: coreg, D50, humulin, phoslo, renagel, Zofran Diet: CCHO PO intake: poor Weights: 03/14: 36 kg Skin: ulcers to coccyx, scab to RT knee and RLE discoloration, x2 dry scab to LT leg Hany: 12 Edema: none Last BM: 03/14/19 RDN Visit (03/16): pt was sleeping. Per RN Yamilex, pt is not eating and has very poor appetite. Pt has requested for Ensure nutritional supplement. RDN visit (03/13): pt was in pain and refused to answer questions. Pt's RN Flora said that pt has been non-complaint with her renal diet. Family brings food from home but she is a picky eater and eats only what she likes. RN was not aware how Pascual consumption. Pt has been given education on Renal diet with handouts in the past. RDN visit (03/09): Pt was eating lunch and said that she ate a hamburger before her lunch. Her appetite is good. Pt said that she has not been consuming Pascual since she has to dilute it a lot. RDN educated her about importance of nutrition in wound healing and encouraged drinking Pascual atleast once a day. Pt verbalized understanding and did not have any questions at this time. Estimated Nutritional Needs Based on [place] body weight 45.5 kg Energy:1365- 1592 kcal/d (30-35 kcal/kg-weight gain/wound healing/HD) Protein:65-91 g/d (1.5-2.0g/kg)- preservation of lean body mass/wound healing/HD Fluid: 7940-8384 ml/d (1 ml/kcal-fluid balance) or per doctor Nutrition Diagnosis 1. Increased nutrient needs related to medical condition as evidenced by BLE ulcer, erythema to coccyx (ongoing) 2. Inadequate oral intake related to poor appetite as evidenced by <50% PO intake documented. (ongoing) 3. Limited adherence to nutrition related recommendations related to disinterested/unwilling in applying information as evidenced by lack of compliance. (ongoing) Intervention 1. Continue CCHO diet. 2. Recommend Ensure high protein BID. (since pt in on dialysis and has high protein needs) Monitor/Evaluate Previous goal: Progress to Renal diet (goal met), recommend Pascual BID ( not met) Goal: PO intake at least 75% of estimated needs Monitor: PO intake, Labs, GI function F/U in 3-5 days as moderate risk: 03/19-
--- NOTE | 2019-03-16 13:13 | NUR ---
1. [facility]. 2. Recommend Ensure high protein BID. (since pt in on dialysis and has high protein needs)
[2019-03-16 13:28] VITALS: BP 149/68
--- NOTE | 2019-03-16 15:15 | NUR ---
PHYSICAL THERAPY NOTE ATTEMPTED FOR EVAL, PATIENT REFUSED SECONDARY TO SHARP PAIN 10/10 ON LUQ.
--- NOTE | 2019-03-16 16:22 | NUR ---
PATIENT BLOOD SUGAR 93 AT THIS TIME. NO INSULIN COVERAGE REQUIRED. ALL NEEDS ATTENDED TO. WILL CONTINUE TO MONITOR
--- NOTE | 2019-03-16 16:50 | NUR ---
TRANSPORT TEAM AT BEDSIDE. IV REMOVED WITH CATH INTACT. TELE MONITOR REMOVED AND RETURNED TO POWER ORIGINATOR. ALL ID BANDS REMOVED. ALL PERSONAL BELONGINGS WITH PATIENT. ALL QUESTIONS AND CONCERNS ADDRESSED. ALL NEEDS ATTENDED TO. PATIENT TO BE ESCORTED DOWN WITH TRANSPORT TEAM. ALL SAFETY PRECAUTIONS MAINTAINED
== END 2019-03-16 16:50 | DRG 280 ==
LOC: ED 14:20 → DU 17:51
PROVIDERS: Internal Medicine Nephrology; Specialist; ADMIT Family Medicine
DX: I21.A1 Myocardial infarction type 2 (principal); N17.0 Acute kidney failure with tubular necrosis; N18.6 End stage renal disease; E43 Unspecified severe protein-calorie malnutrition; I12.0 Hypertensive chronic kidney disease with stage 5 chronic kidney disease or end stage renal disease; L03.116 Cellulitis of left lower limb; L03.115 Cellulitis of right lower limb; I69.354 Hemiplegia and hemiparesis following cerebral infarction affecting left non-dominant side; Z68.1 Body mass index [BMI] 19.9 or less, adult; E11.65 Type 2 diabetes mellitus with hyperglycemia; A49.8 Other bacterial infections of unspecified site; S92.901A Unspecified fracture of right foot, initial encounter for closed fracture; F41.9 Anxiety disorder, unspecified; E83.52 Hypercalcemia; E83.39 Other disorders of phosphorus metabolism; D64.9 Anemia, unspecified; L89.891 Pressure ulcer of other site, stage 1; Z99.2 Dependence on renal dialysis; Z91.19 Patient's noncompliance with other medical treatment and regimen
CPT/HCPCS: 82962; 83880; J0690; J1644; J2405; J3010; J7050; Q0092

== ENCOUNTER 2019-04-05 11:27 | Inpatient (IN) | payer OTHER ==
[~2019-04-05] VITALS: Ht 152.4 cm; Wt 32.4 kg
[2019-04-05 13:12] LABS: CALCIUM 11.1 mg/dL (8.5-10.1); CARBON DIOXIDE 31.9 mmol/L (21-32); CREATININE SERUM 3.8 mg/dL (0.6-1.0)
[2019-04-05 13:16] LABS: BILIRUBIN TOTAL 0.47 mg/dL (0.20-1.00); TOTAL PROTEIN, SERUM 6.4 g/dL (6.4-8.2)
[2019-04-05 13:20] LABS: ALBUMIN 1.7 g/dL (3.4-5.0)
[2019-04-05 13:32] LABS: PLATELET COUNT 304 x10^3mcL (130-400)
[2019-04-05 13:34] LABS: BASOPHIL % 0 % (0-2); RED CELL DISTRIBUTION WIDTH 19.9 % (11.5-14.5)
[2019-04-05] MEDS ORDERED: PROSTAT (15:09)
[2019-04-05] MEDS ORDERED: RENAL-VITE TAB0.8 MG PO (15:09)
[2019-04-05 15:23] LABS: CHOLESTEROL/HDL RATIO 6.4; MAGNESIUM 2.2 mg/dL (1.8-2.4); PHOSPHOROUS 5.5 mg/dL (2.5-4.9)
[2019-04-05 16:09] VITALS: BP 147/47
[2019-04-05 16:23] VITALS: Ht 152.4 cm; Wt 32.4 kg
[2019-04-05 19:51] VITALS: BP 149/37
[2019-04-06 04:57] VITALS: BP 151/40
[2019-04-06 07:21] LABS: MAGNESIUM 2.4 mg/dL (1.8-2.4); PHOSPHOROUS 6.6 mg/dL (2.5-4.9)
[2019-04-06 07:50] VITALS: BP 155/56
[2019-04-06 12:06] VITALS: BP 144/51
[2019-04-06 13:44] LABS: CALCIUM 9.8 mg/dL (8.5-10.1); CREATININE SERUM 1.9 mg/dL (0.6-1.0)
[2019-04-06 14:55] LABS: BASOPHIL % 0.1 % (0-2); PLATELET COUNT 297 x10^3mcL (130-400); RED CELL DISTRIBUTION WIDTH 19.8 % (11.5-14.5)
[2019-04-06 14:59] LABS: rbc morphology (normal/abnorm) ABNORMAL (NORMAL)
[2019-04-06 16:04] VITALS: BP 110/63
[2019-04-06 20:29] VITALS: BP 176/66
[2019-04-07] VITALS (9 sets, daily range): BP systolic 90–199; BP diastolic 39–74
[2019-04-07 08:43] LABS: CALCIUM 11.8 mg/dL (8.5-10.1); CARBON DIOXIDE 28.9 mmol/L (21-32); CREATININE SERUM 3.2 mg/dL (0.6-1.0); MAGNESIUM 2.1 mg/dL (1.8-2.4); POTASSIUM SERUM 3.5 mmol/L (3.5-5.1)
[2019-04-07 11:21] LABS: rbc morphology (normal/abnorm) ABNORMAL (NORMAL); target cell (codocyte) 2+
[2019-04-07 11:46] LABS: PLATELET COUNT 294 x10^3mcL (130-400)
[2019-04-07 11:47] LABS: BASOPHIL % 0 % (0-2)
[2019-04-07] MEDS ORDERED: CEFAZOLIN1 GM/50 ML IV (12:36)
[2019-04-07] MEDS ORDERED: BACO TOP (14:52)
[2019-04-07] MEDS ORDERED: HIBICLENS118 ML TOP (14:52)
[2019-04-07] MEDS ORDERED: TETRACYCLINE H500 MG PO (16:25)
== END 2019-04-07 20:00 | DRG 811 ==
LOC: ED 11:27 → DU 14:28 → MU 14:28 → DU 16:09 → MU 17:44
PROVIDERS: Emergency Medicine; ADMIT Family Medicine
PROC: 30233N1 Transfusion of Nonautologous Red Blood Cells into Peripheral Vein, Percutaneous Approach (ICD-10-PCS; principal; 2019-04-07)
DX: D64.9 Anemia, unspecified (principal); N18.6 End stage renal disease; N17.0 Acute kidney failure with tubular necrosis; E43 Unspecified severe protein-calorie malnutrition; I13.2 Hypertensive heart and chronic kidney disease with heart failure and with stage 5 chronic kidney disease, or end stage renal disease; I69.354 Hemiplegia and hemiparesis following cerebral infarction affecting left non-dominant side; L03.116 Cellulitis of left lower limb; L03.115 Cellulitis of right lower limb; E87.1 Hypo-osmolality and hyponatremia; E83.52 Hypercalcemia; I50.9 Heart failure, unspecified; I73.9 Peripheral vascular disease, unspecified; E87.6 Hypokalemia; M25.561 Pain in right knee; J44.9 Chronic obstructive pulmonary disease, unspecified; Z99.2 Dependence on renal dialysis; Z91.14 Patient's other noncompliance with medication regimen
CPT/HCPCS: 82962; 83880; J0690; J1644; J2405; J3010; J3480; J7030; J7050; P9016; P9047; Q0092

== ENCOUNTER 2019-05-17 13:08 | Inpatient (IN) | payer OTHER ==
[~2019-05-17] VITALS: Ht 152.4 cm; Wt 34.2 kg
[~2019-05-17 13:08] MED LIST changes: +BACO TOP; +CEFAZOLIN1 GM/50 ML IV; +HIBICLENS118 ML TOP; +PROSTAT; +RENAL-VITE TAB0.8 MG PO; +TETRACYCLINE H500 MG PO
--- NOTE | 2019-05-17 13:37 | NUR ---
PT PRESENTS TO ED BIB AMBULANCE WITH C/O ABNORMAL LABS. PER EMS PT WAS SCHEDULED FOR DIALYSIS TODAY, HAD LABS DRAWN, AND PT HEMOGLOBIN WAS 5.4. PT WAS NOT ABLE TO GET DIALYSIS. PER EMS PT VSS NORMAL IN ROUTE. EMS STS PT IS ABLE TO ANSWER SOME YES OR NO QUESTIONS AND THAT IS PT BASELINE. PER EMS PT HAS PORT FOR DIALYSIS IN RT CHEST. PT NORMAL FOR SELF, CONFUSED, RESP E/U, ON FULL CM, WILL CONTINUE TO MONITOR.
--- NOTE | 2019-05-17 13:56 | NUR ---
PT ARRIVED WITH KNEE BENT TO THIGH AND WRAPPED WITH BANDAGES FROM FACILTY. PER ORDERS BANDAGES WERE CUT AND RT LEG HAD ODOR, OPEN SORES WITH DRAINAGE, AND SKIN IS BLACK FROM ABOVE THE KNEE DOWN TO TOES. DR. GARCIA MADE AWARE.
[2019-05-17 14:16] LABS: CALCIUM 10.2 mg/dL (8.5-10.1); CARBON DIOXIDE 32.1 mmol/L (21-32); CREATININE SERUM 2.5 mg/dL (0.6-1.0); POTASSIUM SERUM 4.5 mmol/L (3.5-5.1)
[2019-05-17 14:20] LABS: BILIRUBIN TOTAL 0.8 mg/dL (0.20-1.00)
[2019-05-17 14:21] LABS: ALBUMIN 1.4 g/dL (3.4-5.0); TOTAL PROTEIN, SERUM 6.1 g/dL (6.4-8.2)
[2019-05-17 14:30] LABS: rbc morphology (normal/abnorm) ABNORMAL (NORMAL)
[2019-05-17 14:31] LABS: PLATELET COUNT 273 x10^3mcL (130-400)
[2019-05-17 14:35] LABS: BAND NEUTROPHIL 1 % (0-10); BASOPHIL 0 % (0-2); MONOCYTE 2 % (0-7); SEGMENTED NEUTROPHILS 94 % (37-75)
[2019-05-17 14:36] LABS: PLATELET MORPHOLOGY PLATELETS DECREASED
--- NOTE | 2019-05-17 14:50 | NUR ---
FACILITY CALLED REGUARDING LEG OF PT, PER REQUEST. PER CHARGE NURSE VIOLET AT [facility], PT WAS TRANSFERED THERE FROM OTHER FACILITY ON 03/16/19. PER VIOLET PT ARRIVED WITH GANGRENOUS LEG AND SHE IS UNSURE WHY LEG WAS NOT AMPUTATED. VIOLET STS "IT MAY BE THE REQUEST OF THE FAMILY". PT MOTHER, SYLVIA WAS CALLED. I LEFT MESSAGE FOR HER TO RETURN CALL.
--- NOTE | 2019-05-17 16:07 | NUR ---
PT SON STEFANY AT BEDSIDE. SON ASKED ABOUT PT LEG. PER SON "DR STATED HE DID NOT THINK SHE WOULD BE ABLE TO TAKE SURGERY".
--- NOTE | 2019-05-17 16:30 | NUR ---
PT SON STEFANY STEPPED OUT TO CALL PT MOTHER. PT SON WAS TOLD TO COME BACK TO SIGN BLOOD TRANSFUSION CONSENT FORMS. PER KIMBERLY JOANNE, SON CALLED FROM LOBBY AND STATED "MY GRANDMA CAN'T COME IN AND I'M GOING TO LEAVE, I CAN'T STAY". I ATTEMPTED TO FIND SON IN LOBBY AND IN FRONT OF HOSPITAL BUT I COULD NOT FIND HIM.
--- NOTE | 2019-05-17 16:51 | NUR ---
PER TRANSFUSE BLOOD TO PT OVER 4 HRS. 300ML OF PRBCS INFUSING AT 70ML/HR.
--- NOTE | 2019-05-17 17:21 | NUR ---
CALLED SHELIA DA SILVA FROM WOUND CARE DEPARTMENT, NO ANSWER, LEFT MESSAGE TO CALL BACK ED.
[2019-05-17 17:35] LABS: CHOLESTEROL/HDL RATIO 4.6
--- NOTE | 2019-05-17 18:20 | NUR ---
REPORT CALLED TO FOUZIA CAMARILLO TO ASSUME CARE OF PT. ALL QUESTIONS ADDRESSED AND ANSWERED.
--- NOTE | 2019-05-17 18:50 | NUR ---
RECEIVED PT FROM ED VIA [employer]. PT IS AWAKE, ORIENTED TO PERSON AND BIRTHDATE ONLY. ABLE TO FOLLOW SIMPLE COMMANDS. SPEECH IS CLEAR. NO SOB NOTED, LUNG SOUNDS CTA. DENIES CHEST PAIN/PRESSURE, SR W/ BBB AND DEPRESSED ST. DENIES ABDOMINAL DISCOMFORT. PALE. NO PULSE DETECTED ON THE RIGHT FOOT. ABLE TO DETECT PULSE ON THE LEFT FOOT BY DOPPLER. W/ LEFT CHEST DIALYSIS CATHETER, DRESSING CDI (LAST DRESSING CHANGE WAS ON 05/15/19). W/ BLACK CLOSED WOUNDS ON THE RIGHT BUTTOCK, RIGHT HIP AND RLE,W/ LEFT HIP OPEN WOUND W/ PURULENT DRAINAGE AND FOUL ODOR (COVERED W/ OPTIFOAM), SACRAL CLOSED WOUND (COVERED W/ OPTIFOAM DRESSING), LLE ECCHYMOSIS, OPEN WOUND ON THE LEFT MOLINA AREA BUT NO DRAINAGE, BEHIND THE RIGHT KNEE OPEN WOUND BUT UNABLE TO FULLY MEASURE THE WOUND RLE IS CONTRACTED. RLE IS COVERED W/ GAUZE DRESSINGS AND KERLIX DRESSING. ON AIR MATTRESS. PT IS POSITIONED ON HER LEFT SIDE AT THIS TIME. SIDE RAILS UPX2. CALL LIGHT ON REACH. HOB ELEVATED AT 30 DEG.
--- NOTE | 2019-05-17 18:50 | NUR ---
RECEIVED PT FROM ED W/ PRBC TRANSFUSION ONGOING
[2019-05-17 19:36] VITALS: BP 135/58
--- NOTE | 2019-05-17 19:44 | NUR ---
ENDORSED TO PRIMARY NURSE CORY FOR CONTINUITY OF CARE
--- NOTE | 2019-05-17 19:45 | NUR ---
PATIENT RECEIVED FROM IMMANUEL FRAGOSO FOR CONTINUATION OF CARE. PATIENT RESTING IN BED AT THIS TIME. RESPIRATION EVEN AND UNLABORED, ON O2 2L PER NASAL CANNULA. NO SIGN OF DISCOMFORT/PAIN. ONGOING BLOOD TRANSFUSION. 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 WILL CONTINUE TO MONITOR.
[2019-05-17 19:55] VITALS: Ht 152.4 cm; Wt 34.2 kg
--- NOTE | 2019-05-17 20:12 | NUR ---
DR. HUDSON IS PAGEGATED ABOUT PT'S WOUNDS, WAITING FOR FURTHER ORDERS.
--- NOTE | 2019-05-17 20:50 | NUR ---
PRBC TRANSFUSION DONE, NO ADVERSE REACTIONS NOTED. KR=[phone], NY=74. TEMP=98.7, O2 SAT=98% ON 2LPM/NC, RR=18.
--- NOTE | 2019-05-17 21:13 | NUR ---
GOT REPORT FROM LALI NURSING DRYING ROOM OPERATOR DAY SHIFT THAT PT NEEDS HIGHER LEVEL OF CARE FOR PT NEEDING VASCULAR SURGEON FOR RIGHT LEG ISCHEMIA. CONTACTED [facility] AND WAS ABLE TO TALK TO CINTIA NURSING DRYING ROOM OPERATOR AND SHE GAVE ME THE TELEPHONE SERVICE ADVISER DRFernando FOR [facility] AND WHO WILL BE [place] ACCEPTING DR IN [place]. DR. PAYAL ALLISON- [phone]. GAVE THIS NUMBER TO DR. TAO. SO WAITING FOR THE RESPONSE OF THIS TWO ALSO CALLED [facility] AND TALKED TO INGRID NURSING DRYING ROOM OPERATOR. AND TOLD ME TO FAX ALL RELATED INFORMATION ABOUT THE PT. AND THEN THEY WILL REVIEW THE CHART. FAXED ALL INFORMATION. WAITING FOR THEIR RESPONSE. CALLED [facility] REGARDING TRANSFER THIS PT NEEDING HIGHER LEVEL OF CARE AND THE NURSING DRYING ROOM OPERATOR STATED THEY DON'T HAVE ANY OPENNING FOR TELE BED TRANSFER MARJAN LEVINE.
--- NOTE | 2019-05-17 21:37 | NUR ---
RECIEVED A CALL FROM [facility]/ FROM [facility] AND THEY ARE ASKING THE AUTHORIZATION NUMBER. CALLED THE SCAN AND [facility] AND BOTH NEEDING TO BE FOLLOWED UP IN THE MORNING BECAUSE OFFICE IS CLOSED.
--- NOTE | 2019-05-17 21:49 | NUR ---
TRIED TO CALL IN [facility] TO TRANSFER CENTER ADULT, THE NURSE TOLD ME TO CALL AT AROUND 2200 AGAIN FOR BED AVAILABILITY.
[2019-05-17 22:05] VITALS: BP 149/66
[2019-05-18 05:45] VITALS: BP 148/57
--- NOTE | 2019-05-18 06:24 | NUR ---
PATIENT AWAKE IN BED, MOANING. MEDICATED WITH TYLENOL 650 MG PO FOR GENERALIZED PAIN. RESPIRATION EVEN AND UNLABORED, ON O2 2L PER NASAL CANNULA. REPOSITIONED FOR COMFORT AND SAFETY. ELEVATED LEG WITH PILLOW. KEPT CLEAN AND DRY. MAINTAINED ON CONTACT ISOLATION FOR HX OF MRSA NARES AND WOUND.
--- NOTE | 2019-05-18 06:37 | NUR ---
PATIENT REFUSED AM LABS. EDUCATED ON THE NECESSITY OF THE ORDER AND ITS IMPORTANCE TO HER CARE.
[2019-05-18 07:24] LABS: BASOPHIL % 0.1 % (0-2); PLATELET COUNT 254 x10^3mcL (130-400)
[2019-05-18 07:33] LABS: CALCIUM 10.3 mg/dL (8.5-10.1); CARBON DIOXIDE 26.7 mmol/L (21-32); POTASSIUM SERUM 4.9 mmol/L (3.5-5.1)
[2019-05-18 07:56] LABS: RED CELL DISTRIBUTION WIDTH 20.2 % (11.5-14.5)
--- NOTE | 2019-05-18 07:59 | NUR ---
RECEIVED PATIENT FRON FOUZIA RAY AND FOUZIA CHILD. PATIENT IN BED COMPLAINING OF PAIN, PRN TYLENOL RECENTLY GIVEN. WILL CONTINUE TO MONITOR PATIENT IS PLANNED TO BE TRASNFERED TO HIGHER LEVEL OF CARE THIS AM. LAB NOTIFIED THAT PATIENT HAS H/H OF 6.03/18, WILL NOTIFY DR TAO.
--- NOTE | 2019-05-18 08:35 | NUR ---
DR TAO NOTIFIED FOR NEEDED TRANSFUSION. ORDERS PLACED, NOTIFIED CHARGE NURSE RYAN & DIALYSIS NURSE. CONSENT SIGNED FROM PREVIOUS DAY, WILL AWAIT CALL FROM BLOOD BANK.
[2019-05-18 09:07] LABS: IRON 23 ug/dL (50-170); TOTAL IRON BINDING CAPACITY 71 ug/dL (250-450)
[2019-05-18 09:26] LABS: RED BLOOD CELLS 2.24 M/mm3 (4.10-5.10)
[2019-05-18 09:45] LABS: ovalocyte/elliptocyte 1+; rbc morphology (normal/abnorm) ABNORMAL (NORMAL)
[2019-05-18 09:49] VITALS: BP 140/56
--- NOTE | 2019-05-18 11:54 | NUR ---
WOUND CARE EVALUATION NOTE: SKIN ASSESSMENT DONE WITH THIS PT. ADMITTED WITH ABNORMAL LAB RESULTS AND MULTIPLE UNSTAGEABLE PRESSURE ULCERS TO SACRALCOCCYX, LEFT AND RIGHT BUTTOCKS. BLE PAD WITH NECROTIC ULCERATIONS.PT.IS AAX4,PAIN TO RLE,SEVERE CONTRACTURE TO BILATERAL HIPS AND KNEES, UNABLE TO EXTENDED RLE. PT. IS ON POSITION WITH PAIN LEVEL 6/10. PT. SAID SHE CAME FROM HOME, DOES NOT LIKE TO STAY AT SNF, DOESN'T SEE DOCTOR AFTER DISCHARGED. COMORBIDITIES RELATED TO DELAY WOUND HEALING AND FURTHER SKIN BREAKS EXPLAINED WITH PLAN OF CARE DISCUSSED WITH PT. AND PRIMARY RN. PT. VERBALIZES UNDERSTANDING AT THIS TIME. INTEGUMENTARY: -LLE VASCULAR ULCER BLACK ESCHAR, ANTERIOR LE 5X3 CM, SHEFALI-WOUND SKIN IS DARK PURPLE AND BROWN, ISCHEMIC -LEFT FOOT TO LEFT HEEL SCATTERED MULTIPLE BROWN/ BLACK UNSTAGEABLE PVU -LEFT HEEL UNSTAGEABLE PRESSURE ULCER [id number] BLACK ESCHAR, SHEFALI WOUND BROWN -RLE FROM HIP DOWN TO A/P THIGH, RIGHT KNEE ANKLE AND FOOT/ENTIRE LOWER LEG (SHEFALI ANKLE, RIGHT HEEL AND DORSAL FOOT) VASCULAR ULCER BLACK ESCHAR TO WOUND BED WITH GANGRENE RIGHT SHEFALI ANKLE, RIGHT HEEL AND DORSAL FOOT EXTENDED TO PARTIAL 2ND, 3RD, 4TH AND 5TH DIDGIT TOES AND INTERSPACES, FOUL ODOR -INFECTED PRESSURE ULCER UNSTAGEABLE RIGHT BUTTOCK 5X10CM WITH 100% NECROTIC TISSUE TO WOUND BED, MODERATE AMOUNT PURULENT DRAINAGE WITH FOUL ODOR, SHEFALI-WOUND SKIN ISCHEMIAC FURTHER DAMAGE OBSERVED -SACRALCOCCYX INFECTED PRESURRE ULCER UN-STAGEABLE 4X3.5 CM WITH 100% SOFT YELLOW/BROWN SLOUGH TO WOUND BED AND MODERATE AMOUNT PURULENT DRAINAGE WITH FOUL ODOR, SHEFALI-WOUND SKIN DTI INDICATED FURTHER DAMAGE -RIGHT HIP/BUTTOCK INFECTED PRESURRE ULCER UN-STAGEABLE 11.5X11CM WITH 100% NECROTIC TISSUE TO WOUND BED, MODERATE AMOUNT PURULENT DRAINAGE WITH FOUL ODOR, SHEFALI-WOUND SKIN ISCHEMIAC FURTHER DAMAGE OBSERVED -LEFT HIP/ BUTTOCK INFECTED PRESURRE ULCER UN-STAGEABLE 11.5X11CM WITH 100% SLOUGH TISSUE TO WOUND BED, MODERATE AMOUNT PURULENT DRAINAGE WITH FOUL ODOR, SHEFALI-WOUND SKIN ISCHEMIAC /DTI WITH FURTHER DAMAGE OBSERVED -PELVIC BONES BLANCHABLE REDNESS, FROM WAIST/LUMBAR AREA DOWN PURPLE ISCHEMIA SKIN OBSERVED INDICATED FURTHER DAMAGE RECOMMENDATIONS: -SURGEON CONSULTATION SURGICAL DEBRIDEMENT -PENDING TRANSFER TO HIGHER LEVEL OF CARE -APPLY SOAKED 4X4 BETADINE DRESSION TO BLE NECROTIC TISSUE AREAS AND ALL INFECTED PRESSURE ULCERS (RIGHT BUTTOCK, LEFT BUTTOCK AND SACRALCOCCYX) AND COVER WITH DRY DRESSING QD AND PRN IF SOILING -OFFLOAD BILATERAL HEELS BY PLACING PILLOWS UNDER CALVES UNLESS OTHERWISE CONTRAINDICATED -HEEL PROTECTORS TO BILATERAL HEELS AT ALL TIMES -PRESSURE REDISTUBUTION SURFACE THERAPY -TURN AND REPOSITION Q2H -CONTINUE TO FOLLOW RD RECOMMENDATIONS PLEASE CONTACT WOUND CARE NURSE FOR ANY QUESTIONS OR CHANGE OF ANY WOUND CONDITIONS
--- NOTE | 2019-05-18 12:03 | NUR ---
DR PALM SPOKE WITH PATIENT SON FRANTZ VIA PHONE ABOUT PLAN OF CARE AND RISKS AND BENEFITS OF VASCULAR PROCEDURES. BLOOD TRANSFUSION COMPLETE W HD NURSE, NO ADVERSE REACTIONS NOTED. WILL CONTINUE TO MONITOR AT THIS TIME.
[2019-05-18 12:48] VITALS: BP 108/50
--- NOTE | 2019-05-18 13:53 | NUR ---
HD NURSE COMPLETED TREATMENT. STATES 1.6 L OUT ALONG WITH 1 UNIT PACKED RED BLOOD CELLS. VS STABLE, BP 135/78. HD NURSE ADMINISTERED 10,[address] DIXON ORDER. VERONICA MORRISON ATTEMPTING TO CALL SON FRANTZ, STATES SHE IS UNABLE TO REACH HIM. WILL WATCH FOR ZACHARY MCCALL IF HE ARRIVES TO ROOM. CALL LIGHT IN REACH AT THIS TIME.
[2019-05-18 17:23] VITALS: BP 141/61
--- NOTE | 2019-05-18 18:46 | NUR ---
PATIENT IN BED, A/OX1. PATIENT BEING CLEANED AND CHANGED WITH ORAL CARE BY LUCIA LANCASTER. NO OTHER SIGNS OF DISTRESS OR SOB. WILL ENDORSE TO ONCOMING NURSE ABOUT TODAYS EVENTS. CALL LIGHT IN REACH, PATIENT ON AIR MATTRESS, BED ALARM ON, AND ACROSS FROM NURSES STATION.
[2019-05-18 19:45] VITALS: BP 125/53
--- NOTE | 2019-05-18 19:45 | NUR ---
RECEIVED REPORT FROM AM NURSE. PT IN BED WITH FAMILY AT BEDSIDE. PT AAOX1, ABLE TO FOLLOW COMMMANDS AND MAKE NEEDS KNOWN. ON TELE#10, DENIES CP/PRESSURE AT THIS TIME. BREATHING EVEN AND UNLABORED ON 2L NC, LUNG SOUNDS CTA. NO SIGNS OF RESP DISTRESS NOTED. AMD SOFT AND FLAT, ACTIVE BOWEL SOUNDS X4 QUAD, DENIES N/V AT THIS TIME. ANURIC, HD DONE EARLIER TODAY WITH 1.6L OUT. GENERALIZED WEAKNESS, BEDFAST. RLE NECROTIC AND CONTRACTED. LLE WITH OPEN WOUND, IN OFF LOAD BOOT, WRAPPED IN GAUZE. ULCERS TO SARABJIT HIPS AND RIGHT BUTTOCK, OPTIFOAM IN PLACE CDI. IV TO LFA INFUSING WELL, FREE FROM REDNESS AND SWELLING. SL TO RW FREE FROM REDNESS AND SWELLING. LEFT UPPER CHEST QUITON IN PLACE, DRESSING CDI. NO ACUTE DISTRESS NOTED. BED AT LOWEST SETTING. CALL LIGHT WITHING REACH. WILL CONTINUE TO MONITOR.
[2019-05-19] VITALS (7 sets, daily range): BP systolic 98–181; BP diastolic 39–70
--- NOTE | 2019-05-19 02:00 | NUR ---
PT SLEEPING COMFORTABLY IN BED, BREATHING EVEN AND UNLABORED ON 1L NC, NO SIGNS OF ACUTE DISTRESS NOTED. BED AT LOWEST POSITION, CALL LIGHT WITHING REACH. WILL CONTINUE TO MONITOR.
--- NOTE | 2019-05-19 06:05 | NUR ---
PT'S B/P THIS MORNING 168/, PER KRISTINA CASAREZ TO GIVE CATAPRESS PO SCHEDULED AT 0900, NOW.
--- NOTE | 2019-05-19 06:35 | NUR ---
PT SLEPT WELL THROGHOUT NIGHT, BREATHING EVEN AND UNLABORED ON 1L NC, NO RESP DISTRESS NOTED. IV FLUIDS INFUSING WELL TO LFA, SITE FREE FROM REDNESS AND SWELLING. ALL NEEDS ASSSESSED AND ATTENDED, NO ACUTE DISTRESS NOTED. BED AT LOWEST SETTING, CALL LIGHT WITHING REACH. WILL ENDORSE CARE TO AM NURSE.
[2019-05-19 07:16] LABS: PLATELET COUNT 211 x10^3mcL (130-400)
[2019-05-19 07:17] LABS: RED CELL DISTRIBUTION WIDTH 21.4 % (11.5-14.5)
--- NOTE | 2019-05-19 08:00 | NUR ---
RECEIVED PATIENT DROWSY, AROUSABLE. ORIENTED TO PERSON AND PLACE. ABLE TO MADE NEEDS KNOWN. SLOW TO ANSWER QUESTIONS. TELE#10; SR W/ DEPRESSED S-T SEGMENT; HR = 62, BREATHING SOUND DIMINISEHD SARABJIT BASES, BUT CLEAR. O2 SAT 100% ON 1L/MIN VIA N/C. CONTRACTED BLE. BED BOUND. ON THERPY SURFACE BED. MULTIPLE LARGE ULCERS TO COCCYX/BUTTOCKS AND BLES W/ DRSGS INTACT. IV TKO TO LFA. IVHL'D TO R WRIST. ANURIA. LINDSAY CATH TO L UPPER OTIS WALL. SLEEPING. NO S/S OF PAIN NOW. WOULD REPOSITION PATIENT Q2H. 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 CALL LIGHT IN REACH.
--- NOTE | 2019-05-19 09:30 | NUR ---
FINISHED 305 OF RENAL DIET BY FEEDING, INCLUDED 55% CREAM OF WHEAL, 200CC OF LOW FAT MILK; ORANGE JUICE 240CC; COFFEE WITH SUGAR/CREAM 60CC.
[2019-05-19 09:56] LABS: CALCIUM 9.7 mg/dL (8.5-10.1); CARBON DIOXIDE 27.4 mmol/L (21-32); CREATININE SERUM 2.1 mg/dL (0.6-1.0); PHOSPHOROUS 4.8 mg/dL (2.5-4.9); POTASSIUM SERUM 3.8 mmol/L (3.5-5.1)
[2019-05-19 11:27] LABS: BAND NEUTROPHIL 1 % (0-10); BASOPHIL 0 % (0-2); MONOCYTE 2 % (0-7); SEGMENTED NEUTROPHILS 97 % (37-75)
[2019-05-19 11:28] LABS: PLATELET MORPHOLOGY PLATELETS DECREASED; rbc morphology (normal/abnorm) ABNORMAL (NORMAL)
--- NOTE | 2019-05-19 13:37 | NUR ---
Initial Nutrition Assessment: (212T-B) JOANNE WEST 69F Dx: R leg ischemia, severe anemia, sepsis PMHx: ESRD on MWFSa HD, HTN, COPD, past CVA, chronic lower extremit cellulitis, peripheral vascular disease PSHx: tunnel cath placement Labs: BG 71 L, BUN 30 H, Cr 2.1 H, Alk Phos 330 H Meds: Apresoline, Catapres, Colace, Coreg, Lasix, Nephro-radha, Protonix, Vancomycin, Zofran Diet: Renal PO intake since admission: <25% Ht: 60in Wt: 75 # BMI: 14.7 Bed scale: N/A IBW: 100# %IBW: 75% UBW: 75# Age: 69 Food Allergies: NKFA Skin: None noted Hany: 10 Edema: None noted GI: Last BM: 05/17 RD Note (05/19): Visited pt bedside, states would like some ice for her mouth. C/o R knee pain r/t R leg ischemia. Pt states has poor appetite and eats less than half of food on tray. Pt states follows diet they told her about during dialysis. Pt scheduled for HD MWFSa r/t ESRD. Pt appropriate for diet supplementation r/t poor PO intake, low BMI 14.7, and ESRD. Spoke with Dr Soliz about Nepro TID, confirmed. Problem with: N/V/D/C: Problems with: Chewing: Swallowing: Current appetite: Recent wt change: %wt change: Vitamin/Supplement use: Special diet at home: Renal Physical activity: Nutrition education given (specify specific nutrition education and handout given): None given at this time. Food-drug interactions? Education given? None given at this time Estimated Nutritional Needs Based on ideal body weight (45 kg) Energy: 4586-1219 kcal/day (35-40 kcal/kg for malnutrition and HD) Protein: 55-68 g/day (1.2-1.5 g/kg for malnutrition and HD) Fluid: Per MD (ESRD on MWFSa HD) Nutrition Diagnosis: 1. Malnutrition r/t inadequate oral intake, poor appetite AEB BMI 14.7, 75% IBW Intervention 1. Recommend add Nepro w/ Carbsteady TID w/ each meal. 2. Encourage better PO intake. Monitor/Evaluate Goal: PO intake at least 75% of estimated needs Monitor: PO intake, Labs, GI function F/U in 2-3 days as high risk 05/21-05/22
--- NOTE | 2019-05-19 13:40 | NUR ---
Initial Nutrition Assessment: (212T-B) JOANNE WEST 69F Dx: R leg ischemia, severe anemia, sepsis PMHx: ESRD on MWFSa HD, HTN, COPD, past CVA, chronic lower extremit cellulitis, peripheral vascular disease PSHx: tunnel cath placement Labs: BG 71 L, BUN 30 H, Cr 2.1 H, Alk Phos 330 H Meds: Apresoline, Catapres, Colace, Coreg, Lasix, Nephro-radha, Protonix, Vancomycin, Zofran Diet: Renal PO intake since admission: <25% Ht: 60in Wt: 75 # BMI: 14.7 Bed scale: N/A IBW: 100# %IBW: 75% UBW: 75# Age: 69 Food Allergies: NKFA Skin: None noted Hany: 10 Edema: None noted GI: Last BM: 05/17 RD Note (05/19): Visited pt bedside, states would like some ice for her mouth. C/o R knee pain r/t R leg ischemia. Pt states has poor appetite and eats less than half of food on tray. Pt states follows diet they told her about during dialysis. Pt scheduled for HD MWFSa r/t ESRD. Pt appropriate for diet supplementation r/t poor PO intake, low BMI 14.7, and ESRD. Spoke with Dr Soliz about Nepro TID, confirmed. Problem with: N/V/D/C: No Problems with: Chewing: No Swallowing: No Current appetite: low Recent wt change: No %wt change: No Vitamin/Supplement use: No Special diet at home: Renal Physical activity: N/A Nutrition education given (specify specific nutrition education and handout given): None given at this time. Food-drug interactions? Education given? None given at this time Estimated Nutritional Needs Based on ideal body weight (45 kg) Energy: 5616-2568 kcal/day (35-40 kcal/kg for malnutrition and HD) Protein: 55-68 g/day (1.2-1.5 g/kg for malnutrition and HD) Fluid: Per MD (ESRD on MWFSa HD) Nutrition Diagnosis: 1. Malnutrition r/t inadequate oral intake, poor appetite AEB BMI 14.7, 75% IBW Intervention 1. Recommend add Nepro w/ Carbsteady TID w/ each meal. 2. Encourage better PO intake. Monitor/Evaluate Goal: PO intake at least 75% of estimated needs Monitor: PO intake, Labs, GI function F/U in 2-3 days as high risk 05/21-05/22
--- NOTE | 2019-05-19 13:40 | NUR ---
Recommendations: 1. Recommend add Nepro w/ Carbsteady TID w/ each meal. 2. Encourage better PO intake.
--- NOTE | 2019-05-19 19:00 | NUR ---
1 UNIT PRBC FINISHED AND GIVEN DURING HD ORDERED. VITAL SIGNS STABLE. NO ACUTE DISTRESS OBSERVED. IOS PROGRAMMER AT BEDSIDE. CALL LIGHT WITHIN REACH. WILL CONTINUE TO MONITOR
--- NOTE | 2019-05-19 19:00 | NUR ---
CONDITION STABLE. H/D STARTED AT 1830. 1 UNIT OF PRBC TRANSFUSION GIVEN WITH H/D. NO URINE OUTPUT; NO BM THIS SHIFT. ENDROSED CARE TO VANESSA ALVAREZ.
--- NOTE | 2019-05-19 19:30 | NUR ---
RECEIVED PT LAYING IN BED, NO ACUTE DISTRESS OBSERVED. DENIES PAIN OR DISCOMFORT AT THIS TIME. PT UNDERGOING HD VIA L UPPER CHEST LINDSAY CATH, DIALYSIS NURSE AT BEDSIDE, TOLERATING WELL. AA/OX1, SELF ONLY, CONFUSED AT TIMES, EASILY AROUSABLE TO VERBAL STIMULI, SITTING UP WATCHING TV. NSR TO TELE #10, DENIES CP. PEDAL PULSES ABSENT. BREATHING ON 1L NC, EVEN AND UNLABORED, NO SOB OR DYSPNEA OBSERVED, LUNGS CTA, O2 SAT 100%. ABD SOFT AND FLAT WITH ACTIVE BOWEL SOUNDS, NO N/V/D. NONAMBULATORY, GENERALIZED WEAKNESS, RLE CONTRACTED, LLQ IN OFF LOAD BOOT, AIR MATTRESS IN PLACE. RLE NECROSIS WITH OPEN WOUND NOTED TO BACK OF R KNEE, UNABLE TO OBTAIN MEASUREMENTS DUE TO PT BEING CONTRACTED. OPEN WOUND ULCERS TO BOTH HIPS, OPTIFOAM IN PLACE, CDI. WOUND TO R BUTTOCK, OPTIFOAM CDI. LLE WITH OPEN WOUND TO BACK OF LEG, WRAPPED IN GAUZE.IV TO LFA IN PLACE, INFUSING IVF ORDERED AT TKO. IV TO RW S/L. COMFORT AND SAFETY MEASURES IN PLACE. BED IN LOWEST POSITION WITH SIDE RAILS UPX2 AND BED ALARM ACTIVATED. CALL LIGHT WITHIN REACH. WILL CONTINUE TO MONITOR
--- NOTE | 2019-05-19 20:30 | NUR ---
DR. ELENA MADE AWARE THAT PT HAS BEEN ACCEPTED TO [facility]. WILL ANTICIPATE ORDERS
--- NOTE | 2019-05-19 20:35 | NUR ---
PT MADE AWARE THAT SHE IS BEING ACCEPTED FOR TRANSFER TO [facility]. PT AGREED AND VERBALIZED UNDERSTANDING
--- NOTE | 2019-05-19 20:39 | NUR ---
SPOKE WITH AMISHA TOLBERTPERMIT TECHNICIAN AT [facility]. ACCEPTING PHYSICIAN Amita ADAMES PT IS GOING TO ROOM 354, NUMBER TO CALL REPORT [phone]
--- NOTE | 2019-05-19 20:43 | NUR ---
ATTEMPTED TO CALL PT'S SON, MADISON WEST ON CELL PHONE AND HOME NUMBER LISTED IN FACE SHEET, NO ANSWER. MESSAGE LEFT WITH CALL BACK NUMBER. WILL ANTICIPATE RETURN CALL.
--- NOTE | 2019-05-19 21:01 | NUR ---
PT C/O PAIN IN BLE AT THIS TIME AND REQUESTING PAIN MED. MEDICATED WITH PRN NORCO PER EMAR
--- NOTE | 2019-05-19 21:10 | NUR ---
HD DONE, 1.6 L OUT. VITAL SIGNS STABLE. NO ACUTE DISTRESS OBSERVED. CALL LIGHT WITHIN REACH. WILL CONTINUE TO MONITOR
--- NOTE | 2019-05-19 21:18 | NUR ---
REPORT GIVEN TO FOUZIA BARONE, FROM [facility], TO RESUME CARE OF PT. ALL QUESTIONS AND CONCERNS ADDRESSED.
--- NOTE | 2019-05-19 21:28 | NUR ---
SPOKE WITH CARLI, FROM [employer] TO SCHEDULE TRANSPORT FOR PT. PER CARLI, PHONE CALL WILL BE PLACED TO NURSES STATION WITH INFO REGARDING TRANSPORT. WILL ANTICIPATE CALL
--- NOTE | 2019-05-19 21:39 | NUR ---
SPOKE WITH VILLA FROM [facility], HE STATED HE NEEDS TO SPEAK WITH HIS AT RISK SPECIALIST IN REGARDS TO AVAILABLE [facility]SP[facility] AND WILL CALL BACK. WILL ANTICIPATE CALL BACK
--- NOTE | 2019-05-19 21:50 | NUR ---
ATTEMPTING TO TAKE PT'S WOUND PHOTOS FOR D/C AND PT REFUSING, STATING "DON'T! I DONT WANT ANY PICTURES TAKEN". AFTER MULTIPLE ATTEMPTS, PT STATES TOO PAINFUL AND UNABLE TO TOLERATE.
--- NOTE | 2019-05-19 21:57 | NUR ---
SPOKE WITH VILLA, FROM [facility], HE STATED HE ATTEMPTED TO CONTACT [facility] WHO STATED TO HIM THEY DO NOT SERVICE [facility]. VILLA PROVIDED WITH NUMBERS TO [facility] AND [facility]. VILLA WILL CALL BACK. WILL ANTICIPATE
--- NOTE | 2019-05-19 21:57 | NUR ---
SPOKE WITH MELISSA
--- NOTE | 2019-05-19 22:30 | NUR ---
AT 2215, RECEIVED A CALL FROM [employer] [facility], CAT DRIVER NO TRANSPORTATION AVAILABLE GOING TO ACUTE HOSP. AT 2220 CALLED [facility], SET UP [facility] FOR [place]. BULL DRIVER TIME IN 60-90 MINS. PRIMARY NURSE MADE AWARE OF ABOVE.
--- NOTE | 2019-05-19 23:55 | NUR ---
PT TRANSPORTED VIA [facility]. IV X2 REMAIN IN PLACE, #20 TO LFA AND #22 TO RW, DRY, PATENT, INTACT, FLUSHED WELL WITH NS. ALL PAPERWORKS SIGNED AND IN PACKET. TELE BOX REMOVED. ID BANDS REMOVED. NO ACUTE DISTRESS OBSERVED. BREATHING EVEN AND UNLABORED ON RA.
== END 2019-05-19 23:58 | disposition short-term general hospital (02) | DRG 811 ==
LOC: ED 13:08 → DU 16:41
PROVIDERS: Emergency Medicine; ADMIT General Practice
DX: D50.0 Iron deficiency anemia secondary to blood loss (chronic) (principal); N18.6 End stage renal disease; E43 Unspecified severe protein-calorie malnutrition; N17.0 Acute kidney failure with tubular necrosis; Z68.1 Body mass index [BMI] 19.9 or less, adult; I69.354 Hemiplegia and hemiparesis following cerebral infarction affecting left non-dominant side; L03.116 Cellulitis of left lower limb; L03.115 Cellulitis of right lower limb; E87.1 Hypo-osmolality and hyponatremia; I12.0 Hypertensive chronic kidney disease with stage 5 chronic kidney disease or end stage renal disease; E83.39 Other disorders of phosphorus metabolism; I73.9 Peripheral vascular disease, unspecified; D72.829 Elevated white blood cell count, unspecified; E83.52 Hypercalcemia; J44.9 Chronic obstructive pulmonary disease, unspecified; Z99.3 Dependence on wheelchair; Z99.2 Dependence on renal dialysis
CPT/HCPCS: 82962; 83880; G0378; J1644; J2405; J2543; J3010; J3370; J7030; J7050; P9016; Q0092; Q0163